=== PATIENT | male | born 1985 | race Caucasian/White ===

== ENCOUNTER 2018-02-13 17:48 | Emergency (ER) | payer OTHER ==
[~2018-02-13] VITALS: Ht 185.4 cm
[~2018-02-13 17:48] MED LIST: ADDERALL30 MG PO; AMBIEN10 MG PO; Vicodin,Norco 5/325 PO
[2018-02-13 18:51] VITALS: BP 153/94
== END 2018-02-13 18:51 | disposition home or self-care (01) ==
LOC: EME 17:48
DX: Z77.21 Contact with and (suspected) exposure to potentially hazardous body fluids (principal); Y99.0 Civilian activity done for income or pay; Y92.239 Unspecified place in hospital as the place of occurrence of the external cause
CPT/HCPCS: 80048; 80076; 85025; 99281; 99283